=== PATIENT | female | born 1945 | race Caucasian/White ===

== ENCOUNTER 2018-11-13 07:26 | Day surgery (SDC) | payer OTHER ==
[2018-11-12 17:24] VITALS: BMI 23.1
--- NOTE | 2018-11-13 08:08 | HP ---
Satellite [facility] - Chief Complaint Chief Complaint: right knee pain - Past Medical History Allergies/Adverse Reactions: Allergies Allergy/AdvReac Type Severity Reaction Status Date / Time No Known Allergies Allergy Verified 11/12/18 17:24 - Current Medications Current Medications: Home Medications Medication Instructions Recorded Rosuvastatin Calcium [Crestor] 10 mg PO DAILY 11/12/18 Hydrocodone/Acetaminophen 1 each PO Q6H #15 tablet MDD 4 11/13/18 [Hydrocodone-Acetamin 5-325 mg] Satellite Physical Exam - Physical Examination General Appearance: Well Nourished, Well Developed, Alert & Oriented x3 ENT: Clear Lung: Normal air movement Heart: Regular rate & rhythm Extremities: Other (right knee- +swelling, + ttp, decr rom, + mcmurrays, nvi) Neurological: Intact, Alert, Oriented Satellite Impression/Plan - Impression/Plan Impression: right knee internal derangement Operative Procedure: right knee arthroscopy Date to be Performed: 11/13/18
[2018-11-13] MEDS ORDERED: ROPIVACAINE HCL 0.5% 30ML VIAL ONE (08:25)
[2018-11-13] MEDS ORDERED: MIDAZOLAM HCL 2 MG/2 ML SINGLE DOSE VIAL ONE ×3 (08:26→09:12)
[2018-11-13] MEDS ORDERED: PROPOFOL 20 ML ONE (09:12)
[2018-11-13] MEDS ORDERED: BUPIVACAINE HCL/PF 0.5% (5 MG/ML) 30 ML VIAL IJ ONE ×2 (09:36→10:29)
[2018-11-13] MEDS ORDERED: LIDOCAINE HCL/PF 2% SDV 5ML VIAL ONE (09:49)
[2018-11-13] MEDS ORDERED: DEXAMETHASONE SOD PHOSPHATE 4 MG/1 ML VIAL ONE (09:55)
[2018-11-13] MEDS ORDERED: ceFAZolin SODIUM 1 GM VIAL IVPB ONE (09:57)
[2018-11-13] MEDS ORDERED: ceFAZolin SODIUM 1 GM VIAL ONE (10:05)
--- NOTE | 2018-11-13 10:34 | OP ---
Operative Note - Note: Operative Date: 11/13/18 Pre-Operative Diagnosis: right knee MM tear, LM tear, OA Operation: right knee arthroscopy, partial medial and lateral meniscectomy, debridement chondroplasty Post-Operative Diagnosis: Same as Pre-op Surgeon: Jhonathan Lehman Anesthesiologist/[employer] PROCESSING SUPERVISOR: Dawn Maher Anesthesia: General, Local Specimens Removed: shavings Estimated Blood Loss (mls): 0 Drains, Volume Out (mls): 0 Blood Volume Replaced (mls): 0 Fluid Volume Replaced (mls): 700 Operative Report Dictated: Yes
[2018-11-13] MEDS ORDERED: ONDANSETRON 4 MG/2 ML VIAL IVPUSH PRN (11:10)
[2018-11-13] MEDS ORDERED: ACETAMINOPHEN 325 MG TABLET (FP) PO PRN (11:10)
[2018-11-13] MEDS ORDERED: oxyCODONE HCL 5 MG TABLET PO PRN (11:10)
--- NOTE | 2018-11-13 11:14 | OP ---
DATE OF OPERATION: 11/13/2018 PREOPERATIVE DIAGNOSIS: Right knee pain, medial and lateral meniscus tear, and osteoarthritis. POSTOPERATIVE DIAGNOSIS: Right knee pain, medial and lateral meniscus tear, and osteoarthritis. PROCEDURE: Right knee arthroscopy, partial medial and lateral meniscectomy, debridement chondroplasty. SURGEON: Doris Garcia MD COMBINATION BUILDING INSPECTOR: None. ANESTHESIA: Dawn Maher CRNA. LMA anesthesia with local injection of 20 mL 0.5% Marcaine. DRAINS: None. COMPLICATIONS: None. SPECIMEN: Arthroscopic shavings. BLOOD LOSS: None. BLOOD GIVEN: None. FLUID REPLACEMENT: 500 mL Plasma-Lyte. INDICATIONS: This patient is a 72-year-old female with a preoperative diagnosis of recurrent right knee pain, osteoarthritis, and a medial and lateral meniscus tear. After understanding the potential risks, complications, alternatives, and benefits to surgery versus nonsurgical treatment, the patient elected to undergo this procedure. She understands she may not get complete relief of her symptoms. Because of the osteoarthritis, she may even knee a total knee replacement at some point in the future. DESCRIPTION OF PROCEDURE: The patient was brought to the operating room. Peripheral IV placed. IV sedation given, 2 g of IV Ancef was given. LMA anesthesia was induced. Right lower extremity had ample Webril placed on the right thigh. The tourniquet was applied. The Styrofoam ring was applied. The right lower extremity was placed in the C-clamp leg chanel, prepped and draped in a sterile fashion, elevated, exsanguinated with an Esmarch bandage. Tourniquet inflated to 275 mmHg. A superior and medial lateral outflow portal was established. A lateral port was established. The arthroscope was then introduced into the joint using a spinal needle. Under direct visualization, a lateral portal was established, and a diagnostic arthroscopy was performed. Patient was seen to have a complex tear of the medial meniscus of the anterior horn body and posterior horn. There were grade 1 and early grade 2 chondromalacia changes on the medial tibial plateau. Widespread areas of grade 2 and small areas of grade 2 chondromalacia of the medial femoral condyle. There were some large cracks and crevices. Using the curved shaver, I did a partial meniscectomy and debridement chondroplasty of the medial femoral condyle. Photographs were taken before, during, and after. Next, our attention was turned to the intercondylar notch. There was some synovitis, which I removed, but the ACL itself looked quite good. There was a small amount of fraying, but I pulled on it, had the appropriate amount of tension. Nothing needed to be done here. The lateral compartment overall looked better than the medial compartment. The lateral femoral condyle looked good with grade 2 chondromalacia. The lateral tibial plateau had widespread grade 1 chondromalacia, and the lateral meniscus had several small radial degenerative-type tears of the body and posterior horn. These were debrided with the curved shaver, but overall, lateral compartment looked good. Next, our attention turned to the patellofemoral joint where, unfortunately, the patient did have significant widespread areas of grade 3 and grade 4 osteoarthritis. There were several loose flaps. There was a significant crabmeat effect on the undersurface of the patella. A debridement chondroplasty was performed on the undersurface of the patella as well as the loose flaps of cartilage in the femoral trochlea. I put the knee through a full range of motion, visualized it. There was [id number] contact in certain areas of the patellofemoral joint. This was certainly the worst area of the knee. After the debridement chondroplasty, the area was copiously irrigated and washed out. All debris and excess saline removed. The arthroscopy portals were closed with 3-0 nylon sutures, 20 mL 0.5% Marcaine was introduced into the joint. The area was then washed and dried, covered with Xeroform gauze, 4x4 gauze, Webril, and a 6-inch Nelson bandage. Total tourniquet time was 19 minutes. There were no complications during the case. The patient tolerated the procedure quite well and was brought to the ambulatory recovery room in stable condition. DORIS GARCIA M.D. MARIA [id number]
[2018-11-13] MEDS ORDERED: LACTATED RINGERS SOLUTION 1,000 ML IV SCH (11:15)
[2018-11-13 16:50] VITALS: TEMP 97.8
[2018-11-13 16:58] VITALS: BP 140/78; PULSE 68
--- NOTE | 2018-11-14 19:11 | PATH ---
Surgical Pathology Report Patient Name: [facility] A [facility]. Rec. #: [id number] /Age/Gender: 1945 (Age: 72) / F Account: [id number] Location: [facility] SUR[facility] Taken: 11/13/2018 Received: 11/13/2018 Reported: 11/14/2018 Physicians: Jhonathan Lehman M.D. Specimen(s) Received SHAVINGS Clinical History Internal derangement right knee Final Diagnosis KNEE SHAVINGS, RIGHT, ARTHROSCOPY, MEDIAL AND LATERAL MENISCECTOMY, DEBRIDEMENT CHONDROPLASTY: FRAGMENTS OF CARTILAGE, DENSE FIBROCONNECTIVE TISSUE, ADIPOSE TISSUE, AND SYNOVIUM. Electronically Signed Bonnie Salinas M.D. Gross Description Received in formalin, labeled "right knee shavings," is a 3 x 2 x 1 cm. aggregate of vizcarra-yellow soft tissue fragments. A rental sales representative portion is submitted in one cassette. MLSZ/11/13/2018 [email or web address]/11/13/2018
== END 2018-11-13 14:15 | disposition home or self-care (01) ==
LOC: JASU-SURG 07:26
PROVIDERS: ATTEND Orthopaedic Surgery
PROC: 0SBC4ZZ Excision of Right Knee Joint, Percutaneous Endoscopic Approach (ICD-10-PCS; 2018-11-13)
PROC: 0SBC4ZZ Excision of Right Knee Joint, Percutaneous Endoscopic Approach (ICD-10-PCS; principal; 2018-11-13 09:00)
DX: S83.241A Other tear of medial meniscus, current injury, right knee, initial encounter (principal); S83.281A Other tear of lateral meniscus, current injury, right knee, initial encounter; M17.11 Unilateral primary osteoarthritis, right knee; M25.561 Pain in right knee; X58.XXXA Exposure to other specified factors, initial encounter; Y93.9 Activity, unspecified; Y92.9 Unspecified place or not applicable; M22.41 Chondromalacia patellae, right knee; M65.9 Synovitis and tenosynovitis, unspecified
CPT/HCPCS: 29880; G0289; 88304-TC; 94760

== ENCOUNTER 2020-09-15 07:52 | Day surgery (SDC) | payer OTHER ==
[2020-09-12 13:47] VITALS: BMI 22.5
[2020-09-15] MEDS ORDERED: BUPIVACAINE HCL 100 ML ONE (08:34)
[2020-09-15] MEDS ORDERED: MIDAZOLAM HCL 2 MG/2 ML SINGLE DOSE VIAL ONE (09:07)
[2020-09-15] MEDS ORDERED: SUCCINYLCHOLINE CHLORIDE 200 MG/10 ML SYRINGE ONE (09:17)
[2020-09-15] MEDS ORDERED: PROPOFOL 20 ML ONE ×2 (09:17)
[2020-09-15] MEDS ORDERED: ceFAZolin SODIUM 1 GM VIAL ONE (09:24)
[2020-09-15] MEDS ORDERED: KETOROLAC TROMETHAMINE 30 MG/1 ML VIAL ONE (09:30)
[2020-09-15] MEDS ORDERED: ONDANSETRON 4 MG/2 ML VIAL ONE ×2 (09:30→10:27)
[2020-09-15] MEDS ORDERED: DEXAMETHASONE SOD PHOSPHATE 4 MG/1 ML VIAL ONE (09:30)
[2020-09-15] MEDS ORDERED: BUPIVACAINE HCL/PF 0.5% (5MG/ML) 10 ML VIAL IJ ONE ×2 (09:47→10:04)
[2020-09-15] MEDS ORDERED: oxyCODONE HCL 5 MG TABLET PO PRN (10:34)
[2020-09-15] MEDS ORDERED: ONDANSETRON 4 MG/2 ML VIAL IVPUSH PRN (10:34)
[2020-09-15] MEDS ORDERED: LACTATED RINGERS SOLUTION 1,000 ML IV SCH (10:45)
[2020-09-15 12:34] VITALS: BP 124/66; PULSE 71; TEMP 98
== END 2020-09-15 12:24 | disposition home or self-care (01) ==
LOC: FASU 07:52
PROVIDERS: ATTEND Orthopaedic Surgery
PROC: 0SBD4ZZ Excision of Left Knee Joint, Percutaneous Endoscopic Approach (ICD-10-PCS; 2020-09-15)
PROC: 0SQD4ZZ Repair Left Knee Joint, Percutaneous Endoscopic Approach (ICD-10-PCS; 2020-09-15)
PROC: 0SBD4ZZ Excision of Left Knee Joint, Percutaneous Endoscopic Approach (ICD-10-PCS; principal; 2020-09-15 09:00)
DX: S83.242A Other tear of medial meniscus, current injury, left knee, initial encounter (principal); S83.282A Other tear of lateral meniscus, current injury, left knee, initial encounter; M25.562 Pain in left knee; M17.12 Unilateral primary osteoarthritis, left knee; M67.52 Plica syndrome, left knee; X58.XXXA Exposure to other specified factors, initial encounter; Y93.9 Activity, unspecified; Y92.9 Unspecified place or not applicable
CPT/HCPCS: 29880; G0289; 94010; 94760